=== PATIENT | female | born 1980 ===

== ENCOUNTER 2019-01-14 19:39 | Emergency (ER) | payer SELFPAY ==
[~2019-01-14] VITALS: Ht 162.6 cm; Wt 61.2 kg
--- NOTE | 2019-01-14 20:27 | NUR ---
Patient left ER to get ID and insurance card but never returned. Was not Seen by ERMD.
== END 2019-01-14 20:28 | disposition left against medical advice (07) ==
LOC: ER 19:43
DX: Z53.21 Procedure and treatment not carried out due to patient leaving prior to being seen by health care provider (principal)
CPT/HCPCS: A4663